=== PATIENT | female | born 1965 | race Caucasian/White ===

== ENCOUNTER 2023-09-23 09:03 | Emergency (ER) | payer MEDICAID ==
[2023-09-23 11:48] LABS: BASOPHILS ABSOLUTE AUTO 0.05 K/uL (0.00-0.10); BASOPHILS PERCENT AUTO 0.4 % (0.1-1.3); EOSINOPHILS ABSOLUTE AUTO 0.05 K/uL (0.00-0.40); EOSINOPHILS PERCENT AUTO 0.4 % (0.0-5.4); HEMATOCRIT 39.6 % (34.3-46.0); IMMATURE GRAN ABSOLUTE AUTO 0.03 K/uL (0.00-0.23); IMMATURE GRAN PERCENT AUTO 0.3 % (0.0-0.7); LYMPHOCYTES ABSOLUTE AUTO 1.68 K/uL (0.8-3.3); LYMPHOCYTES PERCENT AUTO 14.4 % (11.4-47.7); MEAN CORPUSCULAR HEMOGLOBIN 26.1 pg (31.6-35.5); MEAN CORPUSCULAR HGB CONC 32.8 g/dL (31.6-35.5); MEAN CORPUSCULAR VOLUME 79.5 fL (81.4-99.0); MONOCYTES ABSOLUTE AUTO 1.15 K/uL (0.20-0.90); MONOCYTES PERCENT AUTO 9.9 % (3.3-12.6); NEUTROPHILS ABSOLUTE AUTO 8.69 K/uL (1.0-7.6); NEUTROPHILS PERCENT AUTO 74.6 % (40.0-78.1); PLATELET COUNT,PLT 303 K/uL (130-375); RED BLOOD CELL COUNT 4.98 M/uL (3.77-5.24); WHITE BLOOD CELL COUNT,WBC 11.7 K/uL (3.2-11.0)
[2023-09-23] MEDS: Ketorolac 30 MG/ML SDV IM ONE (11:48)
== END 2023-09-23 11:55 | disposition home or self-care (01) ==
LOC: JP.ED 09:03
DX: M79.10 Myalgia, unspecified site (principal)
CPT/HCPCS: 36415; 82550; 83605; 85025; 96372; 99283; 99284; J1885

== ENCOUNTER 2025-01-07 06:29 | Day surgery (SDC) | payer MEDICAID ==
[2025-01-07] MEDS ORDERED: Propofol 200 MG/20 ML SDV ONE ×2 (06:50→07:41)
[2025-01-07] MEDS ORDERED: fentaNYL 100 MCG/2 ML SDV ONE (06:51)
[2025-01-07] MEDS ORDERED: Midazolam 1 MG/ML 2 ML SDV ONE (06:51)
[2025-01-07] MEDS: Lactated Ringers 1,000 ML IV SCH (07:09)
== END 2025-01-07 09:12 | disposition home or self-care (01) ==
LOC: JP.SDS 06:29
PROVIDERS: ATTEND Family Medicine
DX: Z12.11 Encounter for screening for malignant neoplasm of colon (principal); R19.5 Other fecal abnormalities; K57.30 Diverticulosis of large intestine without perforation or abscess without bleeding; K64.8 Other hemorrhoids; E78.5 Hyperlipidemia, unspecified
CPT/HCPCS: 00811; 45378; J2250; J2704; J3010; J7120